=== PATIENT | male | born 1950 | race Two or more races ===

== ENCOUNTER 2020-03-16 07:57 | Outpatient (CLI) | payer MEDICARE | END 2020-03-16 14:09 | disposition home or self-care (01) | LOC: LABWHC1 07:57 | PROVIDERS: ATTEND Internal Medicine | DX: Z53.9 Procedure and treatment not carried out, unspecified reason (principal) ==

== ENCOUNTER → 2020-03-19 | Outpatient (CLI) | payer MEDICARE | END | disposition home or self-care (01) | LOC: LABPAT 07:55 | PROVIDERS: ATTEND Internal Medicine | DX: Z11.59 Encounter for screening for other viral diseases (principal) | CPT/HCPCS: 87635 ==

== ENCOUNTER → 2020-11-19 | Outpatient (CLI) | payer MEDICARE ==
--- NOTE | 2020-11-19 11:57 | CT ---
EXAMINATION TYPE: CT sinus wo con DATE OF EXAM: 11/19/2020 COMPARISON: NONE HISTORY: worsening sinus congestion/drainage. Chronic sinusitis per order CT DLP: 676 mGycm. Automated Exposure Control for Dose Reduction was Utilized. TECHNIQUE: CT scan of the sinuses is performed without contrast, axial images are obtained, coronal r eformatted images are also reviewed. FINDINGS: Mild to moderate mucosal thickening involving anterior ethmoid sinuses bilaterally with sma ll left-sided mucous retention cyst or polyp. No suspicious opacification or air-fluid levels. The os tiomeatal complex is patent bilaterally on coronal image 27. Nasal septum is deviated to right of mid line. Visualized portion of mastoid air cells show no abnormal opacification. The globes are intact bilate rally. Visualized portion of brain parenchyma shows [id number] diffuse cerebral atrophy and ch ronic small vessel ischemic change. IMPRESSION: Chronic anterior ethmoid sinus disease. No acute sinusitis.
== END | disposition home or self-care (01) ==
LOC: RADCTMAIN 10:54
PROVIDERS: ATTEND Otolaryngology
DX: J32.9 Chronic sinusitis, unspecified (principal)
CPT/HCPCS: 70486

== ENCOUNTER → 2021-01-04 | Outpatient (CLI) | payer MEDICARE | END | disposition home or self-care (01) | LOC: LABWHC1 08:59 | PROVIDERS: ATTEND Internal Medicine | DX: R19.7 Diarrhea, unspecified (principal) | CPT/HCPCS: 36415; 82272; 87045; 87046; 87324; 87328; 87329 ==

== ENCOUNTER → 2021-08-19 | Outpatient (CLI) | payer MEDICARE ==
--- NOTE | 2021-08-19 16:39 | XR ---
EXAMINATION TYPE: XR ribs RT w pa chest xray DATE OF EXAM: 08/19/2021 COMPARISON: NONE TECHNIQUE: PA view of the chest and 4 views of the right ribs are submitted. HISTORY: Pain FINDINGS: The lungs are clear and there is no pneumothorax, pleural effusion, or focal pneumonia. No acute di splaced rib fracture. IMPRESSION: 1. No acute process.
== END | disposition home or self-care (01) ==
LOC: RADXRYALE 12:56
PROVIDERS: ATTEND Internal Medicine
DX: R07.81 Pleurodynia (principal)

== ENCOUNTER → 2021-11-22 | Outpatient (CLI) | payer MEDICARE ==
--- NOTE | 2021-11-22 13:26 | US ---
EXAMINATION TYPE: US extremity nonvasculr ltd LT DATE OF EXAM: 11/22/2021 COMPARISON: NONE CLINICAL HISTORY: R22.42. Left lateral hip pain that starts in the back and radiates down thigh, no l ump or swelling No focal abnormality seen on soft tissue scan of left hip, upper thigh. Images same showed no worrisome solid or cystic mass or fluid collection. IMPRESSION: As above.
== END | disposition home or self-care (01) ==
LOC: RADUSWWP 12:38
PROVIDERS: ATTEND Internal Medicine
DX: R22.42 Localized swelling, mass and lump, left lower limb (principal)

== ENCOUNTER → 2021-12-17 | Outpatient (CLI) | payer MEDICARE ==
--- NOTE | 2021-12-17 09:57 | XR ---
EXAMINATION TYPE: XR shoulder complete LT DATE OF EXAM: 12/17/2021 COMPARISON: NONE HISTORY: Pain TECHNIQUE: Three views are submitted. FINDINGS: The osseous structures are intact. There is no acute fracture or dislocation. There is AC joint arth ropathy. IMPRESSION: 1. AC joint arthropathy.
== END | disposition home or self-care (01) ==
LOC: RADXRYALE 09:15
PROVIDERS: ATTEND Internal Medicine
DX: M19.012 Primary osteoarthritis, left shoulder (principal)

== ENCOUNTER → 2022-08-25 | Outpatient (CLI) | payer MEDICARE ==
[2022-08-25 08:49] LABS: African American GFR (CKD) >90 (>60 ml/min/1.73 sqM); Blood Urea Nitrogen 12 mg/dL (9-20); Non-African American GFR(CKD) >90 (>60 ml/min/1.73 sqM)
--- NOTE | 2022-08-25 10:20 | CT ---
EXAMINATION TYPE: CT lumbar spine w con DATE OF EXAM: 08/25/2022 COMPARISON: None HISTORY: Chronic back pain CT DLP: 689.9 mGycm Automated exposure control for dose reduction was used. CONTRAST: CT scan of the lumbar is performed with IV Contrast, patient injected with 70ml mL of Isovue 300. Enhanced CT of the lumbar spine was performed. Bone and soft tissue window settings are submitted as well as coronal and sagittal reconstructions. L1-L2: Mild degenerative disc space narrowing. No disc herniation protrusion or central stenosis. No facet joint arthropathy. No evidence for foraminal encroachment. L2-L3: Mild degenerative disc space narrowing. Posterior disc bulge posterocentrally into the right r esulting in right lateral recess stenosis. No evidence for central stenosis or focal herniation. No f acet joint arthropathy. No evidence for foraminal encroachment. L3-L4: Mild degenerative disc space narrowing with posterior disc bulge with mild effacement ventral thecal sac. No evidence for herniation or central stenosis. No evidence for foraminal encroachment. L4-L5: Severe disc desiccation with vacuum disc noted. Moderate posterior disc bulge with bilateral l ateral recess stenosis right greater than left. Bilateral foraminal encroachment. Facet joint arthrop athy as well as ventral and dorsal spondylosis. No central stenosis appreciated. L5-S1: Normal disc space height. No disc herniation protrusion or central stenosis. No facet joint arthropathy. No evidence for foraminal encroachment. IMPRESSION: 1. Multilevel degenerative disc disease. 2. Bilateral lateral recess stenosis at L4-5 as discussed. Right lateral recess stenosis L2-3.
== END | disposition home or self-care (01) ==
LOC: RADCTMAIN 08:09
PROVIDERS: ATTEND Physical Medicine & Rehabilitation Pain Medicine
DX: G89.4 Chronic pain syndrome (principal); M54.50 Low back pain, unspecified
CPT/HCPCS: 82565; 84520; 72132; 36415; Q9967

== ENCOUNTER 2023-04-14 10:30 | Inpatient (IN) | payer MEDICARE ==
[2023-04-14] MEDS ORDERED: NITROGLYCERIN SL TABS 0.4 MG TAB SUBLINGUAL STA ×2 (11:45→12:53)
--- NOTE | 2023-04-14 11:47 | ED ---
Chest Pain HPI - General Chief Complaint: Chest Pain Stated Complaint: Chest Pressure, Numbness in left arm Time Seen by Provider: 04/14/23 11:20 Source: patient, RN notes reviewed Mode of arrival: ambulatory Limitations: no limitations - History of Present Illness Initial Comments: This is a 73-year-old male who presents to the emergency department for chest pain and left arm numbness. Patient states that this started around 9am. He was here for chest pain one month ago, however the patient states that the pain is much worse this time and he did not have the numbness in the arm 1 month ago. Denies any associated shortness of breath. Unsure if he received nitroglycerin during his visit last month. He is not on any blood thinners. Denies any fevers, chills, sore throat, cough, dyspnea, palpitations, abdominal pain, nausea, vomiting, diarrhea, back pain, or headaches. MD Complaint: chest pain Pain Location: substernal Pain Radiation: LUE - Related Data Home Medications Medication Instructions Recorded Confirmed RX: Hydrocortisone Cream 1 applic TOPICAL Q2D 03/05/23 04/14/23 [Hydrocortisone 2.5% Cream] RX: Omeprazole [PriLOSEC] 40 mg PO BID 03/05/23 04/14/23 RX: lisinopriL [Zestril] 10 mg PO BID 03/05/23 04/14/23 RX: traMADol HCl [Ultram] 50 mg PO BID PRN 03/05/23 04/14/23 Diphenoxylate HCl/Atropine 2 tab PO QID PRN 04/14/23 04/14/23 [Lomotil 2.5-0.025 mg Tablet] Potassium Chloride [Klor-Con M20] 20 meq PO DAILY 04/14/23 04/14/23 RX: Gabapentin 600 mg PO BID 04/14/23 04/14/23 RX: traZODone HCL 100 mg PO HS 04/14/23 04/14/23 Previous Rx's Medication Instructions Recorded Ondansetron Odt [Zofran Odt] 4 mg PO Q8HR PRN #10 tab 03/09/23 RX: Aspirin 81 mg PO DAILY #30 tab 03/09/23 RX: Loratadine [Claritin] 10 mg PO DAILY PRN #30 tab 03/09/23 RX: Nitroglycerin Sl Tabs 0.4 mg SUBLINGUAL Q5M PRN #20 tab 03/09/23 [Nitrostat] Allergies Allergy/AdvReac Type Severity Reaction Status Date / Time Sulfa (Sulfonamide Allergy Rash/Hives Verified 04/14/23 14:13 Antibiotics) Review of Systems ROS Statement: Those systems with pertinent positive or pertinent negative responses have been documented in the HPI. ROS Other: All systems not noted in ROS Statement are negative. Past Medical History Past Medical History: GERD/Reflux, Hypertension History of Any Multi-Drug Resistant Organisms: None Reported Past Surgical History: No Surgical Hx Reported Past Anesthesia/Blood Transfusion Reactions: No Reported Reaction Past Psychological History: No Psychological Hx Reported Smoking Status: Never smoker Past Alcohol Use History: None Reported Past Drug Use History: None Reported General Exam Limitations: no limitations General appearance: alert, in no apparent distress Head exam: Present: atraumatic, normocephalic, normal inspection Respiratory exam: Present: normal lung sounds bilaterally. Absent: respiratory distress, wheezes, rales, rhonchi, stridor, chest wall tenderness Cardiovascular Exam: Present: regular rate, normal rhythm, normal heart sounds. Absent: systolic murmur, diastolic murmur, rubs, gallop, clicks Neurological exam: Present: alert, oriented X3, CN II-XII intact Psychiatric exam: Present: normal affect, normal mood Skin exam: Present: warm, dry, intact, normal color. Absent: rash Course Vital Signs 04/14/23 04/14/23 04/14/23 10:41 11:17 12:52 Temperature 97.9 F 97.8 F Pulse Rate 103 H 75 Pulse Rate [ 102 H Pulse Oximetery ] Respiratory 20 18 Rate Blood Pressure 146/90 107/66 O2 Sat by Pulse 96 97 Oximetry 04/14/23 13:58 Temperature 98.4 F Pulse Rate 71 Pulse Rate [ Pulse Oximetery ] Respiratory 17 Rate Blood Pressure 125/73 O2 Sat by Pulse 97 Oximetry Chest Pain MDM - MDM this is a 73-year-old male who presents to the emergency department for chest pain. Was pt. sent in by a medical professional or institution? @ -No Did you speak to anyone other than the patient for history? @ -No Did you review nursing and triage notes? @ -Yes, and I agree, it is accurate with regards to the patient's symptoms. Were old charts reviewed? @ -Yes, echocardiogram from 03/06 revealing mild to moderate aortic regurgitation. Computed tomography scan of the abdomen and pelvis from 03/06 revealing dilation of the left side of the colon suggestive of [place] syndrome. Differential Diagnosis? @ -Differential Chest Pain: Stable Angina, Unstable Angina, STEMI, NSTEMI Aortic Dissection, Pneumothorax, Musculoskeletal, Esophageal Spasm GERD, Cholecystitis, Pancreatitis, Zoster, this is not meant to be an all-inclusive list. EKG interpreted by me (3pts min.)? @ -EKG interpreted by me demonstrating the following: Sinus tachycardia. Ventricular rate 101 beats per minute, SD interval 131 ms, QRS duration 89 ms, QTC 386 ms. X-rays interpreted by me (1pt min.)? @ -Chest x-ray obtained. My interpretation identifies an elevated left hemidiaphragm. CT interpreted by me (1pt min.)? @ -Not obtained U/S interpreted by me (1pt. min.)? @ -Not obtained What testing was considered but not performed? (CT, X-rays, U/S, labs)? Why? @ -None What meds were considered but not given? Why? @ -None Did you discuss the management of the patient with other professionals? @ -Yes, Dr. Kinsey, who accepts the patient for admission. Did you reconcile home meds? @ -No Was smoking cessation discussed for >3mins.? @ -No Was critical care preformed (if so, how long)? @ -No Were there social determinants of health that impacted care today? How? (Homelessness, low income, unemployed, alcoholism, drug addiction, transportation, low edu. Level, literacy, decrease access to med. care, fdc, rehab)? @ -No Was there de-escalation of care discussed even if they declined? (Discuss DNR or withdrawal of care, Hospice)? @ -No What co-morbidities impacted this encounter? (DM, HTN, Smoking, COPD, CAD, Cancer, CVA, Hep., AIDS, mental health diagnosis, sleep apnea, morbid obesity)? @ -HTN Was patient admitted / discharged? @ -Admitted. Lab work obtained revealing an initially elevated INR. However, his RN said that she had difficulty with the blood draw and advised repeating this. Repeat INR was within normal limits. Chest x-ray reveals a left basilar density suggestive of compressive atelectasis due to the elevated left hemidiaphragm from markedly distended bowel loops, however this is similar to his prior x-ray. Additionally, computed tomography scan of the abdomen and pelvis was performed a month ago due to this finding, and that revealed marked dilation of the left side of the colon that was suggestive of [place]'s. Because the imaging remaining stable from one month ago, we avoided a repeat computed tomography scan at this time. This decision for a repeat CT will be deferred to the admitting team. He was given 2 doses of nitroglycerin, which he states did improve his chest pain each time. Initial troponin was negative. Patient admitted to medicine with cardiology consult. Serial troponins order as well. Undiagnosed new problem with uncertain prognosis? @ -None Drug Therapy requiring intensive monitoring for toxicity (Heparin, Nitro, Insulin, Cardizem)? @ -None Were any procedures done? @ -None Diagnosis/symptom? @ -Chest pain Acute, or Chronic, or Acute on Chronic? @ -Acute Uncomplicated (without systemic symptoms) or Complicated (systemic symptoms)? @ -Complicated Side effects of treatment? @ -None Exacerbation, Progression, or Severe Exacerbation] @ -Not applicable Poses a threat to life or bodily function? @ -This will depend on the cause of the chest pain. This case was discussed in detail with the attending ED physician, Dr. Sadler. Presentation, findings, and treatment plan discussed in detail as well. Disposition Clinical Impression: Chest pain Disposition: ADMITTED IP TO THIS HOSP
[2023-04-14 12:06] LABS: Basophils % (A) 0 %; Eosinophils # (A) 0.1 k/uL (0-0.7); Eosinophils % (A) 2 %; HCT 45.8 % (39.0-53.0); Lymphocytes # (A) 1.1 k/uL (1.0-4.8); Lymphocytes % (A) 22 %; MCHC 32.8 g/dL (31.0-37.0); MCV 85.4 fL (80.0-100.0); Mean Platelet Volume 7.3; Monocytes # (A) 0.3 k/uL (0-1.0); Monocytes % (A) 6 %; Neutrophils # (A) 3.4 k/uL (1.3-7.7); Neutrophils % (A) 70 %; Platelet Count 226 k/uL (150-450); RBC 5.37 m/uL (4.30-5.90); RDW 13.9 % (11.5-15.5); WBC 4.9 k/uL (3.8-10.6)
[2023-04-14] MEDS ORDERED: SODIUM CHLORIDE 0.9% 1,000 ML IV STA (12:06)
--- NOTE | 2023-04-14 12:27 | XR ---
EXAMINATION TYPE: XR chest 2V DATE OF EXAM: 04/14/2023 COMPARISON: 03/05/2003 TECHNIQUE: PA and lateral views submitted. HISTORY: Chest pressure FINDINGS: The lungs are clear and there is no pneumothorax, pleural effusion, or focal pneumonia. Heart size normal and no overt failure. Osseous structures intact. There is limited inspiration with elevated le ft hemidiaphragm and marked dilation either the stomach or colon similar to prior exam. Basilar linea r changes most likely in the basis of compressive atelectasis.. IMPRESSION: 1. Left basilar density most likely in the basis of compressive atelectasis due to elevated left mario diaphragm from markedly distended bowel loops or gastric bubble. This is similar to the prior x-ray. Recommend correlation for possible intra-abdominal obstruction.
[2023-04-14 12:28] LABS: ALT 17 U/L (4-49); AST 23 U/L (17-59); African American GFR (CKD) >90 (>60 ml/min/1.73 sqM); Albumin 4.1 g/dL (3.5-5.0); Alkaline Phosphatase 61 U/L (38-126); Anion Gap 10 mmol/L; Blood Urea Nitrogen 10 mg/dL (9-20); Calcium 8.6 mg/dL (8.4-10.2); Carbon Dioxide 22 mmol/L (22-30); Chloride 105 mmol/L (98-107); Glucose 100 mg/dL (74-99); Non-African American GFR(CKD) >90 (>60 ml/min/1.73 sqM); Potassium 4.8 mmol/L (3.5-5.1); Sodium 137 mmol/L (137-145); Total Bilirubin 0.5 mg/dL (0.2-1.3); Total Protein 6.6 g/dL (6.3-8.2)
[2023-04-14 12:30] LABS: Partial Thromboplastin Time 42.7 sec (22.0-30.0); Prothrombin Time 88.9 sec (9.0-12.0)
[2023-04-14 13:35] LABS: INR 0.9 (<1.2); Partial Thromboplastin Time 24.1 sec (22.0-30.0); Prothrombin Time 10.1 sec (9.0-12.0)
[2023-04-14 13:42] LABS: INR 8.8 (<1.2)
[2023-04-14] MEDS ORDERED: NALOXONE 0.4 MG/ML 1 ML VIAL IV PRN (13:52)
[2023-04-14] MEDS ORDERED: ACETAMINOPHEN TAB 325 MG TAB PO PRN (13:52)
[2023-04-14] MEDS ORDERED: HYDROcodone/APAP 5-325MG 1 EACH TAB PO PRN (13:52)
[2023-04-14] MEDS ORDERED: ONDANSETRON 4 MG/2 ML VIAL IVP PRN (13:52)
[2023-04-14] MEDS ORDERED: DIPHENOX-ATROP 2.5-0.025 MG 1 EACH TAB PO PRN (15:45)
[2023-04-14] MEDS ORDERED: LORATADINE 10 MG TAB PO PRN (15:45)
[2023-04-14] MEDS: lisinopriL 10 MG TAB PO SCH (20:18)
[2023-04-14] MEDS: PANTOPRAZOLE 40 MG TABLET PO SCH (20:18)
[2023-04-14] MEDS: traZODone HCL 100 MG TAB PO SCH (20:18)
[2023-04-14] MEDS ORDERED: GABAPENTIN 300 MG CAP PO SCH (21:00)
[2023-04-15] MEDS ORDERED: DICYCLOMINE 10 MG CAP PO PRN (00:26)
--- NOTE | 2023-04-15 00:30 | P.HPIM ---
History of Present Illness H&P Date: 04/14/23 Chief Complaint: Chest pain Patient is a 68 [place] male with a past medical history of hypertension and GERD and chronic diarrhea presents to ER with complaints of chest pain and left arm numbness. Started around 9 AM this morning. Chest pain is mainly left retrosternal region with no associated shortness of breath. Patient did take nitro sublingual did seem to improve his pain. Patient is also complaining of dizziness especially when standing up. No complaints of headache. No nausea vomiting or diaphoresis. No leg swelling. Patient was recently discharged from the hospital on 03/09/2023. Admitted to the hospital due to chest pain and ruled out acute coronary syndrome. Patient was also having diarrhea and colonic distention patient has improved and was di scharged home on 03/09/2023. 2D echocardiogram on 03/06/2023 showed normal left ventricular size and systolic function. Mild to moderate aortic regurgitation with mild MR and TR. No evidence of pulmonary hypertension. EKG showed sinus tachycardia. Chest x-ray showed left basilar density most likely in the basis of compressive atelectasis due to elevated left hemidiaphragm from markedly distended bowel loops. This is similar to the prior x-ray. Recommend correlation for possible intra-abdominal obstruction. Laboratory data showed WBC 4.9 hemoglobin 15.0 and platelets 226 Sodium 137 potassium 4.8 chloride 105 bicarb is 22 BUN 10 and creatinine 0.71 and blood sugar is 100. [place] is a not elevated. Troponin x3 negative. Albumin 4.1. Review of Systems Constitutional: Patient denies any fever or chills . no Generalized weakness. Abdomen: Patient denied any nausea or vomiting or abd. pain. On and off diarrhea. Cardiovascular: Patient denies any chest pain or short of breath no palpitations. Respiratory: patient denied any cough . no sputum production. No shortness of breath Neurologic: Patient denied any numbness or tingling headache. Musculoskeletal: Patient denies any complaints of joint swelling or deformity. Skin: Negative Psychiatric: Negative Endocrine: No heat or cold intolerance. No recent weight gain. Genitourinary: No dysuria or hematuria. All other 14 point ROS negative except the above Past Medical History Past Medical History: GERD/Reflux, Hypertension History of Any Multi-Drug Resistant Organisms: None Reported Past Surgical History: No Surgical Hx Reported Past Anesthesia/Blood Transfusion Reactions: No Reported Reaction Past Psychological History: No Psychological Hx Reported Smoking Status: Never smoker Past Alcohol Use History: None Reported Past Drug Use History: None Reported Medications and Allergies Home Medications Medication Instructions Recorded Confirmed Type Hydrocortisone Cream 1 applic TOPICAL Q2D 03/05/23 04/14/23 History [Hydrocortisone 2.5% Cream] Omeprazole [PriLOSEC] 40 mg PO BID 03/05/23 04/14/23 History lisinopriL [Zestril] 10 mg PO BID 03/05/23 04/14/23 History traMADol HCl [Ultram] 50 mg PO BID PRN 03/05/23 04/14/23 History Aspirin 81 mg PO DAILY #30 tab 03/09/23 04/14/23 Rx Loratadine [Claritin] 10 mg PO DAILY PRN #30 tab 03/09/23 04/14/23 Rx Nitroglycerin Sl Tabs [Nitrostat] 0.4 mg SUBLINGUAL Q5M PRN #20 tab 03/09/23 04/14/23 Rx Ondansetron Odt [Zofran Odt] 4 mg PO Q8HR PRN #10 tab 03/09/23 04/14/23 Rx Diphenoxylate HCl/Atropine 2 tab PO QID PRN 04/14/23 04/14/23 History [Lomotil 2.5-0.025 mg Tablet] Gabapentin 600 mg PO BID 04/14/23 04/14/23 History Potassium Chloride [Klor-Con M20] 20 meq PO DAILY 04/14/23 04/14/23 History traZODone HCL 100 mg PO HS 04/14/23 04/14/23 History Allergies Allergy/AdvReac Type Severity Reaction Status Date / Time Sulfa (Sulfonamide Allergy Rash/Hives Verified 04/14/23 14:13 Antibiotics) Physical Exam Vitals: Vital Signs Temp Pulse Pulse Resp BP Pulse Ox 04/14/23 13:58 98.4 F 71 17 125/73 97 04/14/23 12:52 97.8 F 75 18 107/66 97 04/14/23 11:17 102 H 04/14/23 10:41 97.9 F 103 H 20 146/90 96 Intake and Output 04/13/23 04/14/23 04/14/23 22:59 06:59 14:59 Other: Weight 87.543 kg PHYSICAL EXAMINATION: Patient is lying in the bed comfortably, no acute distress, awake alert and oriented.. HEENT: Normocephalic. Neck is supple. Pupils reactive. Nostrils clear. Oral cavi ty is moist. Neck reveals no JVD, carotid bruits, or thyromegaly. CHEST EXAMINATION: Trachea is central. Symmetrical expansion. Lung owens clear to auscultation and percussion. CARDIAC: Normal S1, S2 with no gallops. No murmurs ABDOMEN: Soft. Bowel sounds present. Nontender. No organomegaly. No abdominal bruits. Extremities: reveal no edema. No clubbing or cyanosis Neurologically awake, alert, oriented x3 with well-coordinated movements. No focal deficits noted Skin: No rash or skin lesions. Psychiatric: Coperative. Nonsuicidal, Musculoskeletal: No joint swelling or deformity. Normal range of motion. Results CBC & Chem 7: 04/14/23 11:47 04/14/23 11:47 Labs: Abnormal Lab Results - Last 24 Hours (Table) 04/14/23 04/14/23 Range/Units 11:47 11:47 PT 88.9 H (9.0-12.0) sec INR 8.8 H* (<1.2) APTT 42.7 H (22.0-30.0) sec Glucose 100 H (74-99) mg/dL Thrombosis Risk Factor Assmnt - DVT/VTE Prophylaxis DVT/VTE Prophylaxis: Pharmacologic Prophylaxis ordered Assessment and Plan Assessment: Chest pain. Rule out ACS. Left wrist density possible compressive atelectasis due to elevated left hemidiaphragm from markedly distended bowel loops. Hypertension GERD History of chronic diarrhea DVT prophylaxis heparin subcu Plan: Patient will be continued on telemetry monitoring. Serial EKG and troponin x3. Cardiology was consulted for evaluation. Patient had recent echocardiogram showed normal left ventricular systolic function. Due to distended bowel loops and on and off diarrhea, gastroenterology service will be consulted. Continue with Lomotil and dicyclomine. Patient stated that his diarrhea started after starting gabapentin during recent admission. will hold gabapentin at this time. Continue home medications and follow-up closely. Time with Patient: Greater than 30
[2023-04-15 06:00] LABS: African American GFR (CKD) >90 (>60 ml/min/1.73 sqM); Anion Gap 7 mmol/L; Blood Urea Nitrogen 10 mg/dL (9-20); Calcium 8.3 mg/dL (8.4-10.2); Carbon Dioxide 24 mmol/L (22-30); Chloride 107 mmol/L (98-107); Glucose 89 mg/dL (74-99); Non-African American GFR(CKD) >90 (>60 ml/min/1.73 sqM); Potassium 4.1 mmol/L (3.5-5.1); Sodium 138 mmol/L (137-145)
[2023-04-15] MEDS: SODIUM CHLORIDE 0.9% 1,000 ML IV SCH ×2 (06:39→20:19)
--- NOTE | 2023-04-15 08:05 | P.CRDCN ---
History of Present Illness Consult date: 04/15/23 History of present illness: History of Present Illness: The patient is a 73-year-old male with known history of hypertension who presented with symptoms of chest discomfort, the discomfort occurred at rest, radiating with numbness to the left arm, not activity related. The patient is active physically, denies any symptoms of exertional chest discomfort, dyspnea on exertion, dizziness or palpitations. He denies any PND, orthopnea or peripheral edema. He still has some numbness in the left arm, he does not feel that the numbness is positional. He was admitted to the hospital about a months ago with atypical chest discomfort and at that time had an echocardiogram that showed a normal left ventricular systolic function and normal cardiac enzymes. His cardiac enzymes have been normal since admission. He is a nonsmoker, nondiabetic Medications: Lisinopril 10 mg twice a day, trazodone, Claritin, Prilosec, aspirin, gabapentin, potassium Review of Systems: Respiratory: No history of asthma, bronchitis or recent cough. GI: No nausea or vomiting . No history of peptic ulcer disease. No recent GI bleed. : No hematuria or dysuria. Nervous System: No stroke or seizure. Physical Examination: 73-year-old male, alert and oriented no distress ,Blood pressure 123/67, Heart rate 73 Head: Normocephalic. Eyes: Sclerae nonicteric. Neck: Good carotid upstroke, no bruit, no jugular venous distention. Lungs: Clear to auscultation. Heart: Regular rate and rhythm, S1-S2, no S3, no rub. Systolic ejection murmur. Abdomen: Soft nontender, positive bowel sounds no organomegaly. Extremities: No edema, intact distal pulses. Labs: Echocardiogram done one month ago showed a normal ventricle size and systolic function with [id number] aortic regurgitation. Troponin less than 0.012. BUN 10, creatinine 0.68, potassium 4.1 EKG: Sinus mechanism with no evidence of ST segment changes Impression: 1. Chest discomfort of unclear etiology. No evidence of acute coronary syndrome, probable noncardiac 2. History of hypertension 3. History of neuropathy Plan: 1. Continue home medications 2. Proceed with stress echocardiogram 3. If no evidence of ischemia, no further cardiac workup would be needed 4. If his stress test shows evidence of stress-induced ischemia then proceed with cardiac catheterization 5. Thank you for this consult we will follow with you Past Medical History Past Medical History: GERD/Reflux, Hypertension History of Any Multi-Drug Resistant Organisms: None Reported Past Surgical History: No Surgical Hx Reported Past Anesthesia/Blood Transfusion Reactions: No Reported Reaction Past Psychological History: No Psychological Hx Reported Smoking Status: Never smoker Past Alcohol Use History: None Reported Past Drug Use History: None Reported Medications and Allergies Home Medications Medication Instructions Recorded Confirmed Type Hydrocortisone Cream 1 applic TOPICAL Q2D 03/05/23 04/14/23 History [Hydrocortisone 2.5% Cream] Omeprazole [PriLOSEC] 40 mg PO BID 03/05/23 04/14/23 History lisinopriL [Zestril] 10 mg PO BID 03/05/23 04/14/23 History traMADol HCl [Ultram] 50 mg PO BID PRN 03/05/23 04/14/23 History Aspirin 81 mg PO DAILY #30 tab 03/09/23 04/14/23 Rx Loratadine [Claritin] 10 mg PO DAILY PRN #30 tab 03/09/23 04/14/23 Rx Nitroglycerin Sl Tabs [Nitrostat] 0.4 mg SUBLINGUAL Q5M PRN #20 tab 03/09/23 04/14/23 Rx Ondansetron Odt [Zofran Odt] 4 mg PO Q8HR PRN #10 tab 03/09/23 04/14/23 Rx Diphenoxylate HCl/Atropine 2 tab PO QID PRN 04/14/23 04/14/23 History [Lomotil 2.5-0.025 mg Tablet] Gabapentin 600 mg PO BID 04/14/23 04/14/23 History Potassium Chloride [Klor-Con M20] 20 meq PO DAILY 04/14/23 04/14/23 History traZODone HCL 100 mg PO HS 04/14/23 04/14/23 History Allergies Allergy/AdvReac Type Severity Reaction Status Date / Time Sulfa (Sulfonamide Allergy Rash/Hives Verified 04/14/23 14:13 Antibiotics) Physical Exam Vitals: Vital Signs Temp Pulse Pulse Resp BP BP Pulse Ox 04/15/23 02:35 98.3 F 73 16 123/67 96 04/14/23 21:06 97.7 F 92 16 156/86 96 04/14/23 20:20 98.3 F 62 16 143/90 98 04/14/23 19:00 80 18 111/80 99 04/14/23 17:10 107 H 17 137/98 97 04/14/23 15:41 98.0 F 76 18 142/106 96 04/14/23 13:58 98.4 F 71 17 125/73 97 04/14/23 12:52 97.8 F 75 18 107/66 97 04/14/23 11:17 102 H 04/14/23 10:41 97.9 F 103 H 20 146/90 96 Intake and Output 04/14/23 04/15/23 04/15/23 22:59 06:59 14:59 Other: # Voids 1 2 Weight 87.543 kg Results 04/14/23 11:47 04/15/23 05:30 Cardiac Enzymes 04/14/23 04/14/23 04/14/23 Range/Units 11:47 11:47 14:53 AST 23 (17-59) U/L Troponin I <0.012 <0.012 (0.000-0.034) ng/mL 04/14/23 Range/Units 17:41 AST (17-59) U/L Troponin I <0.012 (0.000-0.034) ng/mL Coagulation 04/14/23 04/14/23 Range/Units 11:47 13:16 PT 88.9 H 10.1 (9.0-12.0) sec APTT 42.7 H 24.1 (22.0-30.0) sec CBC 04/14/23 Range/Units 11:47 WBC 4.9 (3.8-10.6) k/uL RBC 5.37 (4.30-5.90) m/uL Hgb 15.0 (13.0-17.5) gm/dL Hct 45.8 (39.0-53.0) % Plt Count 226 (150-450) k/uL Comprehensive Metabolic Panel 04/14/23 04/15/23 Range/Units 11:47 05:30 Sodium 137 138 (137-145) mmol/L Potassium 4.8 4.1 (3.5-5.1) mmol/L Chloride 105 107 (98-107) mmol/L Carbon Dioxide 22 24 (22-30) mmol/L BUN 10 10 (9-20) mg/dL Creatinine 0.71 0.68 (0.66-1.25) mg/dL Glucose 100 H 89 (74-99) mg/dL Calcium 8.6 8.3 L (8.4-10.2) mg/dL AST 23 (17-59) U/L ALT 17 (4-49) U/L Alkaline Phosphatase 61 (38-126) U/L Total Protein 6.6 (6.3-8.2) g/dL Albumin 4.1 (3.5-5.0) g/dL Current Medications Generic Name Dose Route Start Last Admin Trade Name Freq PRN Reason Stop Dose Admin Acetaminophen 650 mg 04/14/23 13:52 Acetaminophen Tab 325 Mg Tab PO Q6HR PRN Mild Pain or Fever > 100.5 Hydrocodone Bitart/Acetaminophen 1 each 04/14/23 13:52 Hydrocodone/Apap 5-325mg 1 Each Tab PO Q4HR PRN Moderate Pain (Scale 4 to 6) Aspirin 81 mg 04/15/23 09:00 Aspirin 81 Mg PO DAILY LIZ Dicyclomine HCl 10 mg 04/15/23 00:26 Dicyclomine 10 Mg Cap PO QID PRN Dyspepsia Diphenoxylate HCl/Atropine 2 each 04/14/23 15:45 Diphenox-Atrop 2.5-0.025 Mg 1 Each Tab PO QID PRN Diarrhea Sodium Chloride 1,000 mls @ 75 mls/hr 04/15/23 00:30 04/15/23 06:39 Saline 0.9% IV 75 mls/hr .[id number] LIZ Administration Lisinopril 10 mg 04/14/23 21:00 04/14/23 20:18 Lisinopril 10 Mg Tab PO 10 mg BID LIZ Administration Loratadine 10 mg 04/14/23 15:45 Loratadine 10 Mg Tab PO DAILY PRN Allergy Symptoms Naloxone HCl 0.2 mg 04/14/23 13:52 Naloxone 0.4 Mg/Ml 1 Ml Vial IV Q2M PRN Opioid Reversal Ondansetron HCl 4 mg 04/14/23 13:52 Ondansetron 4 Mg/2 Ml Vial IVP Q8HR PRN Nausea And Vomiting Pantoprazole Sodium 40 mg 04/14/23 21:00 04/14/23 20:18 Pantoprazole 40 Mg Tablet PO 40 mg BID LIZ Administration Potassium Chloride 20 meq 04/15/23 09:00 Potassium Chloride Er 20 Meq Tab.Er PO DAILY LIZ Trazodone HCl 100 mg 04/14/23 21:00 04/14/23 20:18 Trazodone Hcl 100 Mg Tab PO 100 mg HS LIZ Administration Intake and Output 04/14/23 04/15/23 04/15/23 22:59 06:59 14:59 Other: # Voids 1 2 Weight 87.543 kg 04/14/23 11:47 04/15/23 05:30
[2023-04-15] MEDS: PANTOPRAZOLE 40 MG TABLET PO SCH ×2 (09:09→20:38)
[2023-04-15] MEDS: lisinopriL 10 MG TAB PO SCH ×2 (09:09→20:38)
[2023-04-15] MEDS: ASPIRIN 81 MG PO SCH (09:09)
[2023-04-15] MEDS: POTASSIUM CHLORIDE ER 20 MEQ TAB.ER PO SCH (09:09)
--- NOTE | 2023-04-15 13:26 | XR ---
EXAMINATION TYPE: XR abdomen 2V DATE OF EXAM: 04/15/2023 COMPARISON: 03/05/2023 HISTORY: Dilated bowel loops are TECHNIQUE: One view abdominal series FINDINGS: Numerous dilated bowel loops with air fluid level in the right lower quadrant. Surgical clips are not ed. Hypertrophic and degenerative change of the spine. Visualized lung bases are clear. Osseous struc tures stable. IMPRESSION: 1. Markedly dilated bowel loops measuring greater than 11.6 cm which most likely related to left colo n. Suspect a distal bowel obstruction.
--- NOTE | 2023-04-15 14:23 | CA ---
Stress Echo Report Abdi Lockett Age: 73 Gender: M : 1950 Exam Date: 04/15/2023 11:09 Exam Location: [place] Stress Ht (in): 73 Wt (lb): 193 Ordering Physician: Toma Barragan MD ([id number]) Referring Physician: PUSHPA, Trick Rodeo Rider: Abdi Dey Technologist Procedure CPT: Indication: Chest Pain ICD-9 Codes: Rhythm: Patient History: Cardiac Medications: Medications in past 24 hours: Contrast: Stress Results Protocol: Jose David Total dose(mL): Exercise Duration (min:sec): 6:[address] Depression (mm): Angina Score: Alex Score: METS: 7.1 Resting HR: 94 Resting BP: 122 / 68 Peak HR: 166 Peak BP: 172 / 95 Max Predicted HR: 145 114 % Max Predicted HR Target HR: 123 Double Product: [id number] Stress Summary: BP Response: Reason for Termination: MAX EXERTION/TARGET HR Cardiac Symptoms: NO SYMPTOMS ECG Analysis Resting ECG: Normal sinus rhythm, normal ECG Stress ECG: No abnormal ST/T wave changes with exercise Arrhythmia: None Echo Analysis Resting Echo: Normal resting echocardiogram. Peak Echo Analysis: Normal wall thickening and motion MEASUREMENTS (Male/Female) Normal Values CONCLUSIONS No ECG evidence of ischemia with exercise. Normal treadmill stress echocardiogram. Dr. Toma Barragan MD (Electronically Signed) Final Date: 15 April 2023 14:22
--- NOTE | 2023-04-15 16:09 | P.CONS ---
History of Present Illness - Reason for Consult Consult date: 04/15/23 Dilated bowel loops Requesting physician: Bobbi Kinsey - Chief Complaint Chest pain, left arm numbness and tingling - History of Present Illness This a pleasant 73-year-old male who presented to the emergency department yesterday afternoon with complaints of chest pain over the left chest with radiating numbness and tingling down his left arm. Patient states he had some mild shortness of breath which has now resolved. Patient was admitted with a consult to cardiology for chest pain and gastroenterology for dilated bowel loops. Past medical history including acid reflux, hypertension, and chronic diarrhea. Patient has follow-up with Franny Patel's nurse practitioner last month. He has had diarrhea for the last 7-8 months. He was started on dicyclom ine and Questran, which he states has helped. He is now having only about 4 loose stools a day. Denies any blood in his stool. He denies any abdominal pain, nausea, or vomiting. Last EGD colonoscopy was in May [address] Patel. 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 Patient denies any significant weight loss. Cardiology following, and ruled out acute coronary syndrome. Patient had a chest x-ray reporting left basilar density most likely in the basis of compressive atelectasis due to elevated left hemidiaphragm from markedly distended loops are gastric bubble. This is similar to prior x-ray. Recommend correlation for possible intra-abdominal obstruction. Again patient currently denying any abdominal pain, nausea, or vomiting. He's been afebrile. On previous admission in March of this year for similar symptoms patient had a computed tomography scan of the abdomen showing marked dilation up to 11 cm of left-sided colon. 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 Patient states he is not having any surgery. Review of Systems REVIEW OF SYSTEMS: CARDIOPULMONARY: Chest pain over left chest, pain and numbness and tingling radiating down left arm. Mild shortness of breath. Gastrointestinal: No abdominal pain or epigastric pain. No nausea or vomiting. No hematemesis, coffee-ground emesis. No rectal bleeding, or melena. GENITOURINARY: No dysuria or hematuria. MUSCULOSKELETAL: Reports normal range of motion., Joint pain. SKIN: No rashes. No jaundice. ENDOCRINE: No chills, fevers. No excessive weight gain or loss. No polydipsia or polyuria. PSYCHIATRIC: Unremarkable. NEUROLOGY: No change in mental status. Denies dizziness, headache. ENT: Vision unremarkable. CONSTITUTIONAL: No recent weight loss. No fever, chills, night sweats. Past Medical History Past Medical History: GERD/Reflux, Hypertension History of Any Multi-Drug Resistant Organisms: None Reported Past Surgical History: No Surgical Hx Reported Past Anesthesia/Blood Transfusion Reactions: No Reported Reaction Past Psychological History: No Psychological Hx Reported Smoking Status: Never smoker Past Alcohol Use History: None Reported Past Drug Use History: None Reported Medications and Allergies Home Medications Medication Instructions Recorded Confirmed Type Hydrocortisone Cream 1 applic TOPICAL Q2D 03/05/23 04/14/23 History [Hydrocortisone 2.5% Cream] Omeprazole [PriLOSEC] 40 mg PO BID 03/05/23 04/14/23 History lisinopriL [Zestril] 10 mg PO BID 03/05/23 04/14/23 History traMADol HCl [Ultram] 50 mg PO BID PRN 03/05/23 04/14/23 History Aspirin 81 mg PO DAILY #30 tab 03/09/23 04/14/23 Rx Loratadine [Claritin] 10 mg PO DAILY PRN #30 tab 03/09/23 04/14/23 Rx Nitroglycerin Sl Tabs [Nitrostat] 0.4 mg SUBLINGUAL Q5M PRN #20 tab 03/09/23 04/14/23 Rx Ondansetron Odt [Zofran Odt] 4 mg PO Q8HR PRN #10 tab 03/09/23 04/14/23 Rx Diphenoxylate HCl/Atropine 2 tab PO QID PRN 04/14/23 04/14/23 History [Lomotil 2.5-0.025 mg Tablet] Gabapentin 600 mg PO BID 04/14/23 04/14/23 History Potassium Chloride [Klor-Con M20] 20 meq PO DAILY 04/14/23 04/14/23 History traZODone HCL 100 mg PO HS 04/14/23 04/14/23 History Allergies Allergy/AdvReac Type Severity Reaction Status Date / Time Sulfa (Sulfonamide Allergy Rash/Hives Verified 04/14/23 14:13 Antibiotics) Physical Exam Vitals: Vital Signs Temp Pulse Pulse Resp BP BP Pulse Ox 04/15/23 07:00 98.5 F 84 16 136/77 96 04/15/23 02:35 98.3 F 73 16 123/67 96 04/14/23 21:06 97.7 F 92 16 156/86 96 04/14/23 20:20 98.3 F 62 16 143/90 98 04/14/23 19:00 80 18 111/80 99 04/14/23 17:10 107 H 17 137/98 97 04/14/23 15:41 98.0 F 76 18 142/106 96 04/14/23 13:58 98.4 F 71 17 125/73 97 04/14/23 12:52 97.8 F 75 18 107/66 97 04/14/23 11:17 102 H 04/14/23 10:41 97.9 F 103 H 20 146/90 96 Intake and Output 04/14/23 04/15/23 04/15/23 22:59 06:59 14:59 Other: # Voids 1 2 Weight 87.543 kg General appearance: The patient is alert, oriented, appears in no acute distress. HET: Head is normocephalic and atraumatic. Conjunctiva pink. Sclera anicteric. Neck: Supple without lymphadenopathy. Trachea midline. Heart: S1 S2. Regular rate and rhythm. Lungs: Clear to auscultation. Abdomen: Soft, nontender, nondistended with bowel sounds. Patient does have more prominence of the left side of the abdomen than right. No guarding or rigidity. Skin: No rashes. No jaundice. Extremities: Normal skin color and turgor. No pedal edema. Neurological: No focal deficits. Alert and oriented x3. Results CBC & Chem 7: 04/14/23 11:47 04/15/23 05:30 Labs: Abnormal Lab Results - Last 24 Hours (Table) 04/14/23 04/14/23 04/15/23 Range/Units 11:47 11:47 05:30 PT 88.9 H (9.0-12.0) sec INR 8.8 H* (<1.2) APTT 42.7 H (22.0-30.0) sec Glucose 100 H (74-99) mg/dL Calcium 8.3 L (8.4-10.2) mg/dL Assessment and Plan (1) Colon distention Narrative/Plan: 73-year-old male who has been having chronic diarrhea for the last 78 months following with gastroenterology which symptoms have been improving on dicyclomine and Questran. Patient having about 4 episodes of nonbloody diarrhea daily. 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 Patient denies any abdominal pain, no constipation, no nausea or vomiting. Chest x-ray showing consistent dilated bowel loops. Abdominal x-ray ordered again showing dilated bowel loops in the left side measuring up to 11.6 cm suspect distal bowel obstruction. However, patient has had dilated bowels dating back to previous CT of the abdomen and pelvis. Unclear etiology. Will consider general surgery consultation who had seen him in previous admission. Current Visit: No Status: Acute Code(s): K63.89 - OTHER SPECIFIED DISEASES OF INTESTINE SNOMED Code(s): 499533356 (2) Chest pain Current Visit: Yes Status: Acute Code(s): R07.9 - CHEST PAIN, UNSPECIFIED SNOMED Code(s): 21868009 (3) Chronic diarrhea Current Visit: No Status: Acute Code(s): K52.9 - NONINFECTIVE GASTROENTERITIS AND COLITIS, UNSPECIFIED SNOMED Code(s): 089959167 Plan: 1. Continue symptomatic and supportive care 2. Continue workup from cardiology 3. Abdominal x-ray ordered 4. Stool culture ordered 5. Consider consult to general surgery Dr. Ramirez who is seen patient during last admission 6. Further recommendations forthcoming Thank you for this consultation, we will continue to follow. Dr. Kerrie Patel I agree with the dictator's note, documented as a scribe by Kari Ortiz.
[2023-04-15 19:31] VITALS: RESP 16
[2023-04-15] MEDS: traZODone HCL 100 MG TAB PO SCH (20:38)
[2023-04-16] MEDS: SODIUM CHLORIDE 0.9% 1,000 ML IV SCH (02:47)
[2023-04-16 06:33] LABS: African American GFR (CKD) >90 (>60 ml/min/1.73 sqM); Anion Gap 5 mmol/L; Blood Urea Nitrogen 10 mg/dL (9-20); Calcium 8.1 mg/dL (8.4-10.2); Carbon Dioxide 24 mmol/L (22-30); Chloride 108 mmol/L (98-107); Glucose 89 mg/dL (74-99); Non-African American GFR(CKD) 88 (>60 ml/min/1.73 sqM); Potassium 4.2 mmol/L (3.5-5.1); Sodium 137 mmol/L (137-145)
[2023-04-16 06:49] LABS: Basophils % (A) 1 %; Eosinophils % (A) 1 %; HCT 41.8 % (39.0-53.0); HGB 13.7 gm/dL (13.0-17.5); Lymphocytes # (A) 0.9 k/uL (1.0-4.8); Lymphocytes % (A) 26 %; MCH 28.8 pg (25.0-35.0); MCHC 32.9 g/dL (31.0-37.0); MCV 87.6 fL (80.0-100.0); Mean Platelet Volume 7.3; Monocytes # (A) 0.2 k/uL (0-1.0); Monocytes % (A) 6 %; Neutrophils # (A) 2.3 k/uL (1.3-7.7); Neutrophils % (A) 65 %; Platelet Count 184 k/uL (150-450); RBC 4.77 m/uL (4.30-5.90); RDW 13.8 % (11.5-15.5); WBC 3.6 k/uL (3.8-10.6)
[2023-04-16] MEDS: ASPIRIN 81 MG PO SCH (07:49)
[2023-04-16] MEDS: POTASSIUM CHLORIDE ER 20 MEQ TAB.ER PO SCH (07:49)
[2023-04-16] MEDS: PANTOPRAZOLE 40 MG TABLET PO SCH (07:50)
[2023-04-16] MEDS: lisinopriL 10 MG TAB PO SCH (07:51)
[2023-04-16 08:27] VITALS: BP 143/77; PULSE 81; TEMP 98.7
--- NOTE | 2023-04-16 10:01 | P.PN ---
Subjective Progress Note Date: 04/16/23 History of Present Illness: The patient is a 73-year-old male with known history of hypertension who prese nted with symptoms of chest discomfort, the discomfort occurred at rest, radiating with numbness to the left arm, not activity related. The patient is active physically, denies any symptoms of exertional chest discomfort, dyspnea on exertion, dizziness or palpitations. He denies any PND, orthopnea or peripheral edema. He still has some numbness in the left arm, he does not feel that the numbness is positional. He was admitted to the hospital about a months ago with atypical chest discomfort and at that time had an echocardiogram that showed a normal left ventricular systolic function and normal cardiac enzymes. His cardiac enzymes have been normal since admission. He is a nonsmoker, no ndiabetic Medications: Lisinopril 10 mg twice a day, trazodone, Claritin, Prilosec, aspirin, gabapentin, potassium 04/16 Patient is seen today in follow-up on the observation unit. He denies having a ny chest pain. He states he's had some abdominal pain and diarrhea and GI workup is in process. Stress echocardiogram was normal. Results of been reviewed with the patient. Blood pressure 143/77, heart rate is in the 80s and 90s. Repeat blood work reveals hemoglobin of 13.7. Potassium 4.2, creatinine 0.79. Abdominal x-ray revealed markedly dilated bowel loops measuring greater than 11.6 cm most likely related to left: Suspect distal all obstruction. Physical Examination: 73-year-old male, alert and oriented no distress Head: Normocephalic. Eyes: Sclerae nonicteric. Neck: Good carotid upstroke, no bruit, no jugular venous distention. Lungs: Clear to auscultation. Heart: Regular rate and rhythm, S1-S2, no S3, no rub. Systolic ejection murmur. Abdomen: Soft nontender, positive bowel sounds no organomegaly. Extremities: No edema, intact distal pulses. Impression: 1. Chest discomfort of unclear etiology. No evidence of acute coronary syndrome, probable noncardiac 2. History of hypertension 3. History of neuropathy Plan: 1. Continue home medications 2. No further cardiac workup at this time. Cardiology will sign off and follow on an as-needed basis. Please reconsult for any new concerns. Nurse practitioner note has been reviewed, I agree with the documented findings and plan of care. Patient was seen and examined. Objective - Vital Signs Vital signs: Vital Signs Temp 98.7 F 04/16/23 07:00 Pulse 81 04/16/23 07:00 Resp 16 04/16/23 07:00 BP 143/77 04/16/23 07:00 Pulse Ox 96 04/16/23 07:00 FiO2 Intake & Output 04/15/23 04/16/23 04/16/23 18:59 06:59 18:59 Other: # Voids 4 3 - Labs CBC & Chem 7: 04/16/23 06:00 04/16/23 06:00 Labs: Abnormal Lab Results - Last 24 Hours (Table) 04/16/23 04/16/23 Range/Units 06:00 06:00 WBC 3.6 L (3.8-10.6) k/uL Lymphocytes # 0.9 L (1.0-4.8) k/uL Chloride 108 H (98-107) mmol/L Calcium 8.1 L (8.4-10.2) mg/dL
--- NOTE | 2023-04-16 12:47 | P.PN ---
Subjective Progress Note Date: 04/16/23 Principal diagnosis: Chest pain This a pleasant 73-year-old male who presented to the emergency department yesterday afternoon with complaints of chest pain over the left chest with radiating numbness and tingling down his left arm. Patient states he had some mild shortness of breath which has now resolved. Patient was admitted with a consult to cardiology for chest pain and gastroenterology for dilated bowel loops. Past medical history including acid reflux, hypertension, and chronic diarrhea. Patient has follow-up with Franny Patel's nurse practitioner last month. He has had diarrhea for the last 7-8 months. He was started on dicyclomine and Questran, which he states has helped. He is now having only about 4 loose stools a day. Denies any blood in his stool. He denies any abdominal pain, nausea, or vomiting. Last EGD colonoscopy was in May [address] Patel. 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 Patient denies any significant weight loss. Cardiology following, and ruled out acute coronary syndrome. Patient had a chest x-ray reporting left basilar density most likely in the basis of compressive atelectasis due to elevated left hemidiaphragm from markedly distended loops are gastric bubble. This is similar to prior x-ray. Recommend correlation for possible intra-abdominal obstruction. Again patient currently denying any abdominal pain, nausea, or vomiting. He's been afebrile. On previous admission in March of this year for similar symptoms patient had a computed tomography scan of the abdomen showing marked dilation up to 11 cm of left-sided colon. 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 Patient states he is not having any surgery. 04/16/2023: Patient seen and examined sitting up at the bedside. Patient states he is hungry. Primary medical team had made him nothing by mouth. Patient had a x- ray of the abdomen yesterday reported markedly dilated bowel loops measuring greater than 11.6 cm which most likely related to left colon. Suspect distal bowel obstruction. Patient continues to have no abdominal pain, no distention, nausea or vomiting. States he had 3 loose bowel movements yesterday and one loose bowel movement today. Stool culture has not been collected. Yesterday he underwent a stress echocardiogram that showed no ECG evidence of ischemia with exercise. Normal treadmill stress echocardiogram. Cardiology is signing off. Objective - Vital Signs Vital signs: Vital Signs Temp 98.0 F 04/16/23 02:03 Pulse 79 04/16/23 02:03 Resp 16 04/16/23 02:03 BP 119/66 04/16/23 02:03 Pulse Ox 97 04/16/23 02:03 FiO2 Intake & Output 04/15/23 04/16/23 04/16/23 18:59 06:59 18:59 Other: # Voids 4 3 - Exam General appearance: The patient is alert, oriented, appears in no acute distres s. HET: Head is normocephalic and atraumatic. Conjunctiva pink. Sclera anicteric. Neck: Supple without lymphadenopathy. Abdomen: Soft, nontender, nondistended with bowel sounds. Left side of the abdomen more prominent than right. No guarding or rigidity. Extremities: Normal skin color and turgor. No pedal edema Skin: No rashes, no jaundice Neurological: No focal deficits. Alert and oriented. - Labs CBC & Chem 7: 04/16/23 06:00 04/16/23 06:00 Labs: Abnormal Lab Results - Last 24 Hours (Table) 04/16/23 04/16/23 Range/Units 06:00 06:00 WBC 3.6 L (3.8-10.6) k/uL Lymphocytes # 0.9 L (1.0-4.8) k/uL Chloride 108 H (98-107) mmol/L Calcium 8.1 L (8.4-10.2) mg/dL Assessment and Plan (1) Colon distention Narrative/Plan: 73-year-old male who has been having chronic diarrhea for the last 78 months following with gastroenterology which symptoms have been improving on dicyclomine and Questran. Patient having about 4 episodes of nonbloody diarrhea daily. 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 Patient denies any abdominal pain, no constipation, no nausea or vomiting. Chest x-ray showing consistent dilated bowel loops. Abdominal x-ray ordered again showing dilated bowel loops in the left side measuring up to 11.6 cm suspect distal bowel obstruction. However, patient has had dilated bowels dating back to previous CT of the abdomen and pelvis. Unclear etiology. Patient asymptomatic with colonic distention which has been seen on previous abdominal x-rays and abdominal CAT scans. NO plans on endoscopic evaluation. Follow up out patient with GI in 1-2 weeks, genral surg ariana as needed Current Visit: No Status: Acute Code(s): K63.89 - OTHER SPECIFIED DISEASES OF INTESTINE SNOMED Code(s): 070379233 (2) Chest pain Current Visit: Yes Status: Acute Code(s): R07.9 - CHEST PAIN, UNSPECIFIED SNOMED Code(s): 02056176 (3) Chronic diarrhea Current Visit: No Status: Acute Code(s): K52.9 - NONINFECTIVE GASTROENTERITIS AND COLITIS, UNSPECIFIED SNOMED Code(s): 731781805 Plan: 1. Continue symptomatic and supportive care 2. Patient to have clear liquid diet 3. Abdominal x-ray ordered and reviewed 4. Stool culture ordered 5. Patient is cleared from gastroenterology for discharge Thank you for this consultation, we will continue to follow. Dr. Kerrie Patel I agree with the dictator's note, documented as a scribe by Kari Ortiz.
== END 2023-04-16 15:50 | disposition home or self-care (01) | DRG 394 ==
LOC: EC 10:30 → OBSVTOIN 14:27 → 6NMEDSUR 14:27
PROVIDERS: ADMIT Internal Medicine; ATTEND Internal Medicine
DX: K59.39 Other megacolon (principal); J98.11 Atelectasis; I35.1 Nonrheumatic aortic (valve) insufficiency; I10 Essential (primary) hypertension; G62.9 Polyneuropathy, unspecified; R79.1 Abnormal coagulation profile; R00.0 Tachycardia, unspecified; K21.9 Gastro-esophageal reflux disease without esophagitis; Z88.2 Allergy status to sulfonamides; Z79.899 Other long term (current) drug therapy; Z79.82 Long term (current) use of aspirin; Z87.19 Personal history of other diseases of the digestive system
CPT/HCPCS: 36415; 71046; 74019; 80048; 80053; 83735; 84484; 85025; 85610; 85730; 87045; 87046; 93005; 93351; 96360; 99285

== ENCOUNTER 2023-06-22 13:49 | Emergency (ER) | payer MEDICARE ==
--- NOTE | 2023-06-22 14:42 | XR ---
EXAMINATION TYPE: XR chest 2V DATE OF EXAM: 06/22/2023 COMPARISON: 04/14/2020 TECHNIQUE: PA and lateral views submitted. HISTORY: Cough FINDINGS: The lungs are clear and there is no pneumothorax, pleural effusion, or focal pneumonia. Heart size normal and no overt failure. Osseous structures demonstrate hypertrophic and degenerative changes of the spine. Elevated left hemidiaphragm with markedly dilated bowel loop or stomach. IMPRESSION: 1. No acute intrathoracic process. 2. Persistent markedly dilated bowel loop or stomach in the left upper quadrant causing left hemidiap hragm elevation. Correlate clinically.
[2023-06-22 16:29] VITALS: BP 141/91; PULSE 91; RESP 18; TEMP 98.1
--- NOTE | 2023-06-22 16:33 | ED ---
General Adult HPI - General Chief complaint: Upper Respiratory Infection Stated complaint: cough, nasal congestion Time Seen by Provider: 06/22/23 16:15 Source: patient, RN notes reviewed Mode of arrival: ambulatory Limitations: no limitations - History of Present Illness Initial comments: Patient is a pleasant 73-year-old male presenting to the emergency Department with upper respiratory symptoms. Onset of symptoms was a few days ago. Patient does have occasional cough. Patient does have some sinus congestion. No dyspnea. No fevers. Patient did talk with his doctor and was advised to come to the emergency department. - Related Data Home Medications Medication Instructions Recorded Confirmed Hydrocortisone Cream 1 applic TOPICAL Q2D 03/05/23 04/14/23 [Hydrocortisone 2.5% Cream] Omeprazole [PriLOSEC] 40 mg PO BID 03/05/23 04/14/23 lisinopriL [Zestril] 10 mg PO BID 03/05/23 04/14/23 traMADol HCl [Ultram] 50 mg PO BID PRN 03/05/23 04/14/23 Diphenoxylate HCl/Atropine 2 tab PO QID PRN 04/14/23 04/14/23 [Lomotil 2.5-0.025 mg Tablet] Potassium Chloride [Klor-Con M20] 20 meq PO DAILY 04/14/23 04/14/23 traZODone HCL 100 mg PO HS 04/14/23 04/14/23 Previous Rx's Medication Instructions Recorded Aspirin 81 mg PO DAILY #30 tab 03/09/23 Loratadine [Claritin] 10 mg PO DAILY PRN #30 tab 03/09/23 Nitroglycerin Sl Tabs [Nitrostat] 0.4 mg SUBLINGUAL Q5M PRN #20 tab 03/09/23 Ondansetron Odt [Zofran ODT] 4 mg PO Q8HR PRN #10 tab 03/09/23 Dicyclomine [Bentyl] 10 mg PO QID PRN #30 cap 04/16/23 Allergies Allergy/AdvReac Type Severity Reaction Status Date / Time Sulfa (Sulfonamide Allergy Rash/Hives Verified 04/14/23 14:13 Antibiotics) Review of Systems ROS Statement: Those systems with pertinent positive or pertinent negative responses have been documented in the HPI. ROS Other: All systems not noted in ROS Statement are negative. Constitutional: Denies: fever Eyes: Denies: eye pain ENT: Reports: congestion Respiratory: Reports: as per HPI, cough. Denies: dyspnea Cardiovascular: Denies: chest pain Endocrine: Denies: fatigue Gastrointestinal: Denies: abdominal pain Genitourinary: Denies: dysuria Past Medical History Past Medical History: GERD/Reflux, Hypertension History of Any Multi-Drug Resistant Organisms: None Reported Past Surgical History: No Surgical Hx Reported Past Anesthesia/Blood Transfusion Reactions: No Reported Reaction Past Psychological History: No Psychological Hx Reported Smoking Status: Never smoker Past Alcohol Use History: None Reported Past Drug Use History: None Reported General Exam Limitations: no limitations General appearance: alert, in no apparent distress Head exam: Present: atraumatic Eye exam: Present: normal appearance, PERRL ENT exam: Present: normal oropharynx Neck exam: Present: normal inspection. Absent: tenderness, meningismus Respiratory exam: Present: normal lung sounds bilaterally Cardiovascular Exam: Present: regular rate, normal rhythm GI/Abdominal exam: Present: soft. Absent: tenderness Extremities exam: Present: normal inspection Neurological exam: Present: alert Psychiatric exam: Present: normal affect, normal mood Skin exam: Present: normal color Course Vital Signs 06/22/23 06/22/23 14:17 16:15 Temperature 98.9 F 98.1 F Pulse Rate 88 91 Respiratory 20 18 Rate Blood Pressure 138/83 141/91 O2 Sat by Pulse 97 97 Oximetry Medical Decision Making - Medical Decision Making Was pt. sent in by a medical professional or institution (RENE Castro, MEMBER SERVICES REPRESENTATIVE, urgent care, hospital, or usp...) When possible be specific @ -Patient states he was advised by his primary care physician's office to come to emergency department Did you speak to anyone other than the patient for history (EMS, parent, family, police, friend...)? What history was obtained from this source @ -No Did you review nursing and triage notes (agree or disagree)? Why? @ -I reviewed and agree with nursing and triage notes Were old charts reviewed (outside hosp., previous admission, EMS record, old EKG, old radiological studies, urgent care reports/EKG's, usp records)? Report findings @ -No old charts were reviewed Differential Diagnosis (chest pain, altered mental status, abdominal pain women, abdominal pain men, vaginal bleeding, weakness, fever, dyspnea, syncope, headache, dizziness, GI bleed, back pain, seizure, CVA, palpatations, mental health, musculoskeletal)? @ -Differential Fever: Pneumonia, viral URI, endocarditis, myocarditis, pericarditis, otitis, sinusitis, peritonsillar Abscess, retropharyngeal Abscess, epiglottitis, peritonitis, appendicitis, Colette cystitis, diverticulitis, hepatitis, colitis, UTI, PID, TOA, pyelonephritis, prostatitis, epididymitis, meningitis, encephali tis, pulmonary embolism, CVA, thyroid storm, pancreatitis, adrenal crisis, cavernous sinus thrombosis, this is not meant to be an all-inclusive list. EKG interpreted by me (3pts min.). @ -As above X-rays interpreted by me (1pt min.). @ -Chest x-ray shows no acute process CT interpreted by me (1pt min.). @ -None done U/S interpreted by me (1pt. min.). @ -None done What testing was considered but not performed or refused? (CT, X-rays, U/S, labs)? Why? @ -None What meds were considered but not given or refused? Why? @ -None Did you discuss the management of the patient with other professionals (professionals i.e. , PA, MEMBER SERVICES REPRESENTATIVE, lab, RT, psych nurse, adoption social worker, exhaust and muffler fitter, teacher, structural engineering drafting officer, director of casework services)? Give summary @ -No Was smoking cessation discussed for >3mins.? @ -No Was critical care preformed (if so, how long)? @ -No Were there social determinants of health that impacted care today? How? (Homelessness, low income, unemployed, alcoholism, drug addiction, transportation, low edu. Level, literacy, decrease access to med. care, [facility], rehab)? @ -No Was there de-escalation of care discussed even if they declined (Discuss DNR or withdrawal of care, Hospice)? DNR status @ -No What co-morbidities impacted this encounter? (DM, HTN, Smoking, COPD, CAD, Cancer, CVA, ARF, Chemo, Hep., AIDS, mental health diagnosis, sleep apnea, morbid obesity)? @ -None Was patient admitted / discharged? Hospital course, mention meds given and route, prescriptions, significant lab abnormalities, going to OR and other pertinent info. @ -Patient had negative covid 19, influenza and RSV testing. Patient has no acute findings on chest x-ray. Patient does present with upper respiratory symptoms and is recommended follow-up with primary care physician. Patient offered an inhaler however refuses. Undiagnosed new problem with uncertain prognosis? @ -No Drug Therapy requiring intensive monitoring for toxicity (Heparin, Nitro, Insulin, Cardizem)? @ -No Were any procedures done? @ -No Diagnosis/symptom? @ -Upper respiratory infection Acute, or Chronic, or Acute on Chronic? @ -Acute Uncomplicated (without systemic symptoms) or Complicated (systemic symptoms)? @ -default Side effects of treatment? @ -No Exacerbation, Progression, or Severe Exacerbation? @ -No Poses a threat to life or bodily function? How? (Chest pain, [place], [place], pneumonia, PE, COPD, DKA, ARF, appy, cholecystitis, CVA, Diverticulitis, Homicidal, Suicidal, threat to staff... and all critical care pts) @ -No - Lab Data Lab Results 06/22/23 Range/Units 14:24 Influenza Type A (PCR) Not Detected (Not Detectd) Influenza Type B (PCR) Not Detected (Not Detectd) RSV (PCR) Not Detected (Not Detectd) SARS-CoV-2 (PCR) Not Detected (Not Detectd) Disposition Clinical Impression: Upper respiratory tract infection Disposition: HOME SELF-CARE Condition: Stable Instructions (If sedation given, give patient instructions): Upper Respiratory Infection (ED) Additional Instructions: Please do follow-up to primary care physician in the next couple days for recheck. Return for fevers, difficulty breathing, worsening or changing sym ptoms or any other concerns. Is patient prescribed a controlled substance at d/c from ED?: No Referrals: Hortensia Sena MD [Primary Care Provider] - 1-2 days Time of Disposition: 16:33
== END 2023-06-22 16:42 | disposition home or self-care (01) ==
LOC: EC 13:49
DX: J06.9 Acute upper respiratory infection, unspecified (principal); I10 Essential (primary) hypertension; K21.9 Gastro-esophageal reflux disease without esophagitis; Z20.822 Contact with and (suspected) exposure to COVID-19; Z79.899 Other long term (current) drug therapy; Z88.2 Allergy status to sulfonamides
CPT/HCPCS: 71046; 87636; 99283

== ENCOUNTER → 2025-03-10 | Outpatient (CLI) | payer MEDICARE ==
--- NOTE | 2025-03-10 09:48 | XR ---
EXAMINATION TYPE: XR lumbosacral spine min 4V DATE OF EXAM: 03/10/2025 CLINICAL INDICATION: Male, 75 years old with history of M54.89 back pain TECHNIQUE: Frontal, lateral, and oblique images of the lumbar spine are obtained. COMPARISON: CT lumbar spine August 15, 2022 FINDINGS: There is an L6 segment which is sacralized on the left redemonstrated. The lumbar spine s hows stable and satisfactory alignment. Vertebral body heights remain within normal limits. Persisten t moderate disc space narrowing at L5-L6 level. Moderate to severe anterior spurring at L2-L3 level i s present. Oblique images appear within normal limits. Surgical clips overlie the right iliac bone. IMPRESSION: As above. No acute findings are seen. [facility], , 03/10/2025 9:46 AM
== END | disposition home or self-care (01) ==
LOC: RADXRMAIN 09:16
PROVIDERS: ATTEND Internal Medicine
DX: M51.26 Other intervertebral disc displacement, lumbar region (principal)
CPT/HCPCS: 72110